=== PATIENT | female | born 1985 | race Caucasian/White ===

== ENCOUNTER → 2016-10-16 | Outpatient (CLI) | payer OTHER | END | disposition home or self-care (01) | LOC: CFH 06:47 | PROVIDERS: ATTEND Internal Medicine | DX: R10.11 Right upper quadrant pain (principal); E55.9 Vitamin D deficiency, unspecified; J45.20 Mild intermittent asthma, uncomplicated; F06.4 Anxiety disorder due to known physiological condition | CPT/HCPCS: 76700 ==